=== PATIENT | male | born 1955 | race Caucasian/White ===

== ENCOUNTER 2017-03-16 11:23 | Day surgery (SDC) | payer MEDICARE ==
[~2017-03-16 11:23] MED LIST: DIAZEPAM 5 MG TABLET PO ONE
[2017-03-16] MEDS ORDERED: LIDOCAINE 1% W/EPI 1:200,000 MPF 30ML SQ ONE (11:24)
--- NOTE | 2017-03-17 12:50 | Operative Note ---
DATE OF SURGERY: 03/16/17 PREOPERATIVE DIAGNOSIS: Right ring finger trigger finger. POSTOPERATIVE DIAGNOSIS: Right ring finger trigger finger. OPERATION: RIGHT RING FINGER TRIGGER FINGER RELEASE. SURGEON: Altaf Lancaster M.D. ANESTHESIA: Local. PREPARATION: ChloraPrep. INDIVIDUAL CONSIDERATIONS: None. PROCEDURE: The patient was taken to the Operating Room and placed supine on the operating room table. His right arm was prepped and draped in usual fashion. The patient had 1% Lidocaine with Epinephrine infiltrated along the A1 ben. About a 2 cm incision was made directly over the ben longitudinally, sharp dissection carried down just through the skin. Blunt dissection was carried down to the ben carefully under direct view and after holding the neurovascular bundles were checked on either side, I released the ben proximally and distally, I then had him move his finger and the finger moved freely and would no longer trigger. Hemostasis was obtained with compression. After irrigation the skin was closed with interrupted 4-0 nylon in vertical mattress fashion and sterile bulky compressive hand dressing was applied. The patient tolerated the procedure well. Needle and sponge counts were correct. Estimated blood loss was minimal. He was taken back to Recovery in good condition. There were no complications. JOB NUMBER: [id number] MTDD
== END 2017-03-16 14:35 | disposition home or self-care (01) ==
LOC: SUR 11:23
PROVIDERS: ATTEND Orthopaedic Surgery
DX: M65.341 Trigger finger, right ring finger (principal); E78.00 Pure hypercholesterolemia, unspecified; E11.9 Type 2 diabetes mellitus without complications; Z79.4 Long term (current) use of insulin; Z79.84 Long term (current) use of oral hypoglycemic drugs; E03.9 Hypothyroidism, unspecified
CPT/HCPCS: 26055; J3490